=== PATIENT | female | born 1950 | race Caucasian/White ===

== ENCOUNTER 2025-04-11 09:31 | Emergency (ER) | payer MEDICARE, OTHER ==
[~2025-04-11] VITALS: Ht 165.1 cm; Wt 56.2 kg
[2025-04-11 09:35] VITALS: BP 174/59
[2025-04-11] MEDS ORDERED: DENO60DI SQ (09:40)
[2025-04-11 10:14] LABS: PLATELET COUNT (AUTO) 270 K/uL (179-408); RED BLOOD CELL COUNT(AUTO) 3.52 MIL/uL (3.63-4.92); RED CELL DISTRIBUTION WIDTH 14.8 % (12.3-17.7); WHITE BLOOD COUNT (AUTO) 4.7 K/uL (3.8-11.8)
[2025-04-11 10:26] LABS: ASPARTATE AMINOTRANSFERASE 23 U/L (15-37); CREATININE 0.5 mg/dL (0.6-1.3); SODIUM SERUM 141 mmol/L (136-145); TOTAL PROTEIN, SERUM 6.9 g/dL (6.4-8.2); UREA NITROGEN, BLOOD 17 mg/dL (7-18)
[2025-04-11 11:53] VITALS: BP 147/76; TEMP 97.7; O2SAT 97
== END 2025-04-11 11:55 | disposition home or self-care (01) ==
LOC: ER 09:31
DX: R07.89 Other chest pain (principal); I51.9 Heart disease, unspecified; M81.0 Age-related osteoporosis without current pathological fracture; R06.2 Wheezing
CPT/HCPCS: 36415; 71045; 84484; 85025; 85651; 85730; A4606; A4663